=== PATIENT | female | born 1975 | race Caucasian/White ===

== ENCOUNTER 2017-09-12 16:25 | Emergency (ER) | payer OTHER ==
[~2017-09-12] VITALS: Ht 160 cm; Wt 63.5 kg
[2017-09-12 22:22] VITALS: BP 123/66
== END 2017-09-12 22:22 | disposition home or self-care (01) ==
LOC: ED 16:25
DX: M54.5 Low back pain (principal)
CPT/HCPCS: J1885; J3010; Q0162